=== PATIENT | female | born 1980 | race Two or more races ===

== ENCOUNTER 2021-06-06 15:30 | Inpatient (IN) | payer OTHER ==
[~2021-06-06] VITALS: Ht 161.3 cm; Wt 3.6 kg
[2021-07-05] MEDS ORDERED: PRENATAL + DHA1 EAC1 (21:53)
[2021-07-05] MEDS ORDERED: SYNTHROID88 MCG PO (21:54)
== END 2021-07-08 13:31 | disposition home or self-care (01) | DRG 788 ==
LOC: LDR 07-04 15:30 → O/R 07-05 20:47 → LDR 07-05 20:47 → O/R 07-06 08:55 → OB/GYN 07-06 14:04
PROVIDERS: ADMIT Specialist; ATTEND Specialist
PROC: 10D00Z1 Extraction of Products of Conception, Low, Open Approach (ICD-10-PCS; principal; 2021-07-05)
PROC: 4A1HXFZ Monitoring of Products of Conception, Cardiac Rhythm, External Approach (ICD-10-PCS; 2021-07-05)
DX: O76 Abnormality in fetal heart rate and rhythm complicating labor and delivery (principal); O77.0 Labor and delivery complicated by meconium in amniotic fluid; O48.0 Post-term pregnancy; O99.284 Endocrine, nutritional and metabolic diseases complicating childbirth; E03.9 Hypothyroidism, unspecified; O99.824 Streptococcus B carrier state complicating childbirth; Z3A.40 40 weeks gestation of pregnancy; Z37.0 Single live birth; Z20.822 Contact with and (suspected) exposure to COVID-19

== ENCOUNTER 2021-07-05 19:47 | Outpatient (CLI) | payer OTHER ==
[2021-07-05] MEDS ORDERED: PRENATAL + DHA1 EAC1 (21:53)
[2021-07-05] MEDS ORDERED: SYNTHROID88 MCG PO (21:54)
== END 2021-07-05 20:47 | disposition still patient (30) ==
LOC: OBS/DEL 19:47
PROVIDERS: ATTEND Specialist
DX: O48.0 Post-term pregnancy (principal); Z3A.40 40 weeks gestation of pregnancy